=== PATIENT | male | born 1995 | race Caucasian/White ===

== ENCOUNTER 2017-12-24 18:02 | Emergency (ER) | payer MEDICAID ==
[2017-12-24] MEDS ORDERED: Ketorolac 60 MG/2 ML SDV IM ONE (18:10)
--- NOTE | 2017-12-24 18:16 | EDM.PDOC ---
ED HPI GENERAL MEDICAL PROBLEM - General Chief Complaint: ENT Problem Stated Complaint: Dental Pain Time Seen by Provider: 12/24/17 18:05 Source of Information: Reports: Patient, RN, RN Notes Reviewed History Limitations: Reports: No Limitations - History of Present Illness INITIAL COMMENTS - FREE TEXT/NARRATIVE: Patient presents the emergency room at [facility] complaining of dental pain. The patient states he has a long-standing history of dental problems since he was much younger. The patient states that over the past couple of days he has noticed swelling and pain along the right lower jaw line. The patient states that he does not have any dental insurance and he does not take care of his teeth. The patient knows that he needs several dental extractions, however he cannot afford this. The patient is concerned about dental abscess formation. The patient is currently taking Suboxone. Otherwise no other concerns. Onset: Unknown/Unsure Duration: Chronic, Constant - Related Data Home Meds: Home Meds Clindamycin HCl 300 mg PO DAILY 10 Days #30 capsule 12/24/17 [Rx] methylPREDNISolone [Medrol] 4 mg PO ASDIRECTED #1 dosepk 12/24/17 [Rx] ED ROS ENT - Review of Systems Review Of Systems: See Below Constitutional: Denies: Fever, Chills HEENT: Reports: Dental Pain Respiratory: Denies: Shortness of Breath, Cough Cardiovascular: Denies: Chest Pain, Palpitations Skin: Reports: No Symptoms Neurological: Reports: No Symptoms. Denies: Dizziness, Headache ED EXAM, ENT - Physical Exam Exam: See Below Exam Limited By: No Limitations General Appearance: Alert, No Apparent Distress Mouth/Throat: Dental Abcess (Molar #29 & #30), Dental Pain, Dental Tenderness, Dry Mucous Membrane, Gum Swelling, Other (Severe dental decay with multiple missing teeth; patient has abscess formation around molars #30 and #29; the patient has significant gingivitis with advanced periodontal disease; no jaw or facial swelling). No: Dental Trauma Respiratory/Chest: No Respiratory Distress, Lungs Clear, Normal Breath Sounds Cardiovascular: Normal Peripheral Pulses, Regular Rate, Rhythm Neurological: Alert, Oriented Skin: Warm, Dry, Intact, Normal Color Course - Orders/Labs/Meds Orders: Active Orders 24 hr Category Date Time Status Ketorolac [Toradol] Med 12/24/17 18:10 Once 60 mg IM ONETIME ONE Departure - Departure Time of Disposition: 18:16 Disposition: Home, Self-Care 01 Condition: Good Clinical Impression: Dental abscess, Periodontal disease, Gingivitis - Discharge Information *PRESCRIPTION DRUG MONITORING PROGRAM REVIEWED*: Not Applicable *COPY OF PRESCRIPTION DRUG MONITORING REPORT IN PATIENT KIMBERLY: Not Applicable Prescriptions: Clindamycin HCl 300 mg PO DAILY 10 Days #30 capsule methylPREDNISolone [Medrol] 4 mg PO ASDIRECTED #1 dosepk Instructions: Dental Abscess, Gingivitis Forms: ED Department Discharge Additional Instructions: 1. Stay well hydrated and rest 2. Take antibiotics for the full coarse, even if you are feeling better 3. Do warm salt water gargles, it helps with infections 4. Use antiseptic mouth wash several times a day 5. [facility] may be able to help with extractions, there is also a dentist in [place] they may be able to assist - Problem List Review Problem List Initiated/Reviewed/Updated: Yes - My Orders Last 24 Hours: My Active Orders 12/24/17 18:10 Ketorolac [Toradol] 60 mg IM ONETIME ONE - Assessment/Plan Last 24 Hours: My Active Orders 12/24/17 18:10 Ketorolac [Toradol] 60 mg IM ONETIME ONE Assessment:: Dental abscess Advanced periodontal disease Dental caries Gingivitis Plan: T3 examined today. The patient has severe periodontal disease with significant gingivitis. The patient has multiple missing teeth. The patient does have abscess formation around molar #30 extending into molar #29. The patient does have multiple missing teeth. The patient will be given 60 mg of IM Toradol for pain. I did discuss the patient to do warm salt water gargles. The patient may use an antiseptic mouthwash several times a day. The patient will be started on clindamycin 300 mg capsule 3 times a day for the next 10 days. Also start the patient on a Medrol Dosepak to help with any pain or swelling.
== END 2017-12-24 18:25 | disposition home or self-care (01) ==
LOC: VM.ED 18:02
DX: K05.10 Chronic gingivitis, plaque induced (principal); K04.7 Periapical abscess without sinus; K02.9 Dental caries, unspecified; K05.6 Periodontal disease, unspecified; Z79.899 Other long term (current) drug therapy
CPT/HCPCS: 96372; 99282; J1885